=== PATIENT | female | born 1945 | race Caucasian/White ===

== ENCOUNTER 2016-04-25 | Emergency (ER) | payer MEDICARE ==
[~2016-04-25] MED LIST: AMBIEN10 MG PO; ARICEPT10 MG PO; DULOXETINE HCL30 MG PO; ESTRACE1 MG PO; NEURONTIN 300300 MG PO
[2016-04-26 01:22] LABS: HEMOGLOBIN 10.3 gm/dl (12.3-15.3); RED BLOOD COUNT 3.48 M/UL (4.00-5.10); WHITE BLOOD COUNT 5.7 K/UL (4.5-11.0)
[2016-04-26 01:47] LABS: BUN/CREATININE RATIO 12 (0-10)
[2016-11-14] MEDS ORDERED: MELOXICAM7.5 MG PO (08:56)
[2016-11-14] MEDS ORDERED: LOPRESSOR HCT1 EACH PO (08:56)
[2016-11-14] MEDS ORDERED: TIZANIDINE HCL4 M1 PO (08:57)
[2016-11-14] MEDS ORDERED: OLANZAPINE10 MG PO (08:57)
[2016-11-14] MEDS ORDERED: VITAMIN D10000 UNIT PO (08:57)
[2016-11-14] MEDS ORDERED: XARELTO20 MG PO (08:58)
== END 2016-04-26 10:20 | disposition home or self-care (01) ==
PROVIDERS: Student in an Organized Health Care Education/Training Program
DX: I95.9 Hypotension, unspecified (principal); E87.6 Hypokalemia; N28.9 Disorder of kidney and ureter, unspecified; I10 Essential (primary) hypertension; F03.90 Unspecified dementia, unspecified severity, without behavioral disturbance, psychotic disturbance, mood disturbance, and anxiety; F32.9 Major depressive disorder, single episode, unspecified; Z90.49 Acquired absence of other specified parts of digestive tract; Z88.5 Allergy status to narcotic agent; Z79.899 Other long term (current) drug therapy
CPT/HCPCS: 36415; 70450; 71010; 80053; 80307; 81001; 82550; 82553; 82962; 83605; 83874; 84443; 84484; 85025; 85610; 85730; 87040; 87086; 93005; 99285; G0480; J7040

== ENCOUNTER → 2016-07-08 | Outpatient (CLI) | payer MEDICARE ==
[~2016-07-08] MED LIST changes: +LOPRESSOR HCT1 EACH PO; +MELOXICAM7.5 MG PO; +OLANZAPINE10 MG PO; +TIZANIDINE HCL4 M1 PO; +VITAMIN D10000 UNIT PO; +XARELTO20 MG PO
== END ==
LOC: MAMO 04-15 11:40
DX: Z12.31 Encounter for screening mammogram for malignant neoplasm of breast (principal); Z90.710 Acquired absence of both cervix and uterus; Z80.3 Family history of malignant neoplasm of breast
CPT/HCPCS: G0202

== ENCOUNTER 2020-03-02 16:25 | Emergency (ER) | payer MEDICARE | END 2020-03-02 16:44 | disposition E | LOC: ER1 16:25 | DX: I46.9 Cardiac arrest, cause unspecified (principal) | CPT/HCPCS: 82962; 92950; 96374; 99285; J0171 ==